=== PATIENT | female | born 1960 | race Caucasian/White ===

== ENCOUNTER 2019-05-24 15:24 | Inpatient (IN) | payer BC ==
[~2019-05-24] VITALS: Ht 157.5 cm; Wt 59.0 kg
[2019-05-24] MEDS ORDERED: NEURONTIN 300300 MG PO (15:29)
[2019-05-24] MEDS ORDERED: KLONOPIN0.5 MG PO (15:30)
[2019-05-24] MEDS ORDERED: ESTRACE 0.5 MG0.5 MG PO (15:30)
[2019-05-24] MEDS ORDERED: ERENUMAB (15:31)
[2019-05-24 16:01] LABS: BASOPHILS 0.4 % (0-2); EOSINOPHILS 0.7 % (0-7); HEMATOCRIT 38.3 % (36.0-48.0); HEMOGLOBIN 13.5 g/dL (12-16); IMMATURE GRANULOCYTES 0.2 % (0-5); LYMPHOCYTES 28.8 % (15-50); MCH 30.7 pg (26.0-34.0); MCHC 35.2 g/dL (31.0-37.0); MEAN PLATELET VOLUME 9.6 fL (7.4-10.4); MONOCYTES 6.5 % (2-11); NEUTROPHILS 63.4 % (40-80); PLATELET COUNT 288 10x3/uL (130-400); RDW 12.5 % (11.5-14.5); WBC 5.6 10x3/uL (4.8-10.8)
[2019-05-24 16:09] LABS: ALBUMIN 3.8 g/dL (3.4-5.0); ALKALINE PHOSPHATASE 79 U/L (46-116); ALT (SGPT) 21 U/L (10-68); BILIRUBIN - TOTAL 0.32 mg/dL (0.2-1.3); CALC OSMOLALITY 278 mosm/kg (275-300); CALCIUM 9.5 mg/dL (8.5-10.1); CARBON DIOXIDE 26.4 mmol/L (21.0-32.0); CHLORIDE - SERUM 103 mmol/L (98-107); CREATININE - SERUM 0.8 mg/dL (0.6-1.3); GLUCOSE 114 mg/dL (74-106); POTASSIUM - SERUM 3.7 mmol/L (3.5-5.1); PROTEIN - SERUM 7.1 g/dL (6.4-8.2); SODIUM 137 mmol/L (136-145); UREA NITROGEN 24 mg/dL (7-18); eGFR NON AFRICAN AMERICAN 78 mL/min (90-120)
[2019-05-24 16:11] LABS: AMYLASE - SERUM 55 U/L (25-115); LIPASE 160 U/L (73-393); TROPONIN-I < 0.017 ng/mL (0.000-0.060)
[2019-05-24 17:36] LABS: APPEARANCE CLEAR (CLEAR); BILIRUBIN NEGATIVE (NEGATIVE); COLOR YELLOW (YELLOW); GLUCOSE NEGATIVE (NEGATIVE); KETONE NEGATIVE (NEGATIVE); NITRITE NEGATIVE (NEGATIVE); PROTEIN NEGATIVE (NEGATIVE); SPECIFIC GRAVITY 1.015 (1.005-1.020); UROBILINOGEN NORMAL (NORMAL)
--- NOTE | 2019-05-24 20:24 | NUR ---
REC'D PATIENT FROM THE ER WITH GUEST AT BEDSIDE. PATIENT REQUESTED PAIN MEDS FOR 10/10 PAIN. PATIENT DENIES OTHER NEEDS AT THIS TIME. BED IN LOWEST POSITION AND CALL LIGHT WITHIN REACH. ENCOURAGED THE PATIENT TO CALL IF SHE HAS NEEDS. WILL CONTINUE TO MONITOR.
[2019-05-25] VITALS (8 sets, daily range): BP systolic 90–164; BP diastolic 60–90; Ht 157.5 cm; Wt 59.0 kg
[2019-05-25] MEDS ORDERED: LEXAPRO20 MG PO (00:45)
[2019-05-25] MEDS ORDERED: PHENERGAN25 M1 PO (00:45)
[2019-05-25] MEDS ORDERED: FLAGYL500 MG PO (00:45)
[2019-05-25] MEDS ORDERED: ESTRACE 0.0142.5 GM VG (00:46)
[2019-05-25] MEDS ORDERED: LINZESS290 MCG PO (00:46)
[2019-05-25] MEDS ORDERED: BUTALB-APAP-CA1 EACH PO (00:47)
[2019-05-25] MEDS ORDERED: FLORAJEN3 CAPS460 MG PO (00:48)
[2019-05-25] MEDS ORDERED: ZANAFLEX4 MG PO (00:48)
[2019-05-25] MEDS ORDERED: [UNRECOGNIZED DRUG - OTHER] (00:49)
[2019-05-25 07:08] LABS: BASOPHILS 0 % (0-2); EOSINOPHILS 0.7 % (0-7); HEMATOCRIT 34.3 % (36.0-48.0); IMMATURE GRANULOCYTES 0.2 % (0-5); LYMPHOCYTES 24.7 % (15-50); MCH 30.2 pg (26.0-34.0); MCV 86.4 fL (80.0-100.0); MEAN PLATELET VOLUME 9.5 fL (7.4-10.4); MONOCYTES 5.9 % (2-11); NEUTROPHILS 68.5 % (40-80); RBC 3.97 10x6/uL (4.00-5.40); RDW 12.5 % (11.5-14.5); WBC 5.8 10x3/uL (4.8-10.8)
[2019-05-25 07:10] LABS: PLATELET COUNT 230 10x3/uL (130-400)
--- NOTE | 2019-05-25 07:15 | NUR ---
PT UP TO BATHROOM WITH ASSIST FROM UPON ENTERING THE ROOM. PT IS ALERT AND ORIENTED X3, UP ADLIB. PT HAS IV TO RIGHT WRITST WITH NORMAL SALINE @ 125. STOOL CULTURE WAS REORDERED THIS AM. PT DENIES ANY NEEDS AT THIS TIME. WILL CTM.
[2019-05-25 07:23] LABS: CALC OSMOLALITY 279 mosm/kg (275-300); CALCIUM 8.5 mg/dL (8.5-10.1); CARBON DIOXIDE 27.1 mmol/L (21.0-32.0); CHLORIDE - SERUM 107 mmol/L (98-107); CREATININE - SERUM 0.7 mg/dL (0.6-1.3); GLUCOSE 89 mg/dL (74-106); PHOSPHOROUS 3.4 mg/dL (2.5-4.9); POTASSIUM - SERUM 3.6 mmol/L (3.5-5.1); SODIUM 141 mmol/L (136-145); eGFR NON AFRICAN AMERICAN > 90 mL/min (90-120)
[2019-05-25 07:24] LABS: UREA NITROGEN 13 mg/dL (7-18)
--- NOTE | 2019-05-25 10:15 | NUR ---
PT RESTING COMFORTABLY IN BED. NO S/S OF DISTRESS NOTED. DENIES ANY NEEDS. WILL CTM.
--- NOTE | 2019-05-25 11:36 | MORECARE ---
CASE MANAGEMENT DISCHARGE SUMMARY PATIENT: HEIDI CANALES UNIT: [id number] ADM DATE: 05/24/19 AGE: 58 : 64 SEX: F ROOM/BED: D.1209 AUTHOR: KEAGAN ROE PHYSICIAN: REFERRING PHYSICIAN: KERRY AMBROSIO MD DATE OF SERVICE: 05/25/19 Discharge Plan Patient Name: HEIDI CANALES [facility] [facility] 1960 Planned Disposition: Home Anticipated Discharge Date: Discharge Date: Expected LOS: Initial Reviewer: [email or web address] Initial Review Date: 05/24/2019 Generated: 05/25/19 12:36 pm DCPIA - Discharge Planning Initial Assessment Updated by [email or web address]: Ama Nair on 05/25/19 11:35 am * Is the patient Alert and Oriented? Yes * How many steps to enter\exit or inside your home? One * PCP Dr. Jean Claude Sharma * [facility] * Preadmission Environment Home with Family * ADLs Independent * Equipment None * List name and contact numbers for known caregivers / representatives who currently or will assist patient after discharge: Danis Canales - spouse - [phone] * Verbal permission to speak to the caregivers and representatives has been obtained from the patient. Yes * Community resources currently utilized None * Additional services required to return to the preadmission environment? No * Can the patient safely return to the preadmission environment? Yes * Has this patient been hospitalized within the prior 30 days at any hospital? No Patient Name: HEIDI CANALES Page 43579 at 1136 All edits/amendments must be made on the electronic document DICTATION DATE: 05/25/19 1136 DENTAL TECHNOLOGY ADVISOR: ROB 05/25/19 1136 RPT#: [id number] DC DATE: STATUS: ADM IN [facility] [address] [place] [address] END OF REPORT
--- NOTE | 2019-05-25 11:44 | MORECARE ---
CASE MANAGEMENT DISCHARGE SUMMARY PATIENT: HEIDI CANALES UNIT: [id number] ADM DATE: 05/24/19 AGE: 58 : 64 SEX: F ROOM/BED: D.1209 AUTHOR: BHUPINDERDOC PHYSICIAN: REFERRING PHYSICIAN: KERRY AMBROSIO MD DATE OF SERVICE: 05/25/19 Discharge Plan Patient Name: HEIDI CANALES Facility: [facility]:[place] : 1960 Planned Disposition: Home Anticipated Discharge Date: Discharge Date: Expected LOS: Initial Reviewer: [email or web address] Initial Review Date: 05/24/2019 Generated: 05/25/19 12:44 pm DCP- Discharge Planning Updated by [email or web address]: Ama Nair on 05/25/19 10:[address] DC PLAN: Return home with spouse independently. ANTICIPATED DC NEEDS: Denied dc needs. CM met with patient and her to complete initial dc planning assessment. CM educated patient on the CM role and verbal consent given by patient to complete assessment. CM verified patient's address, phone number, and emergency contact phone numbers. Patient lives at home with her and reports she is independent in her care at home. She works fulltime in admission at the hospital. At discharge patient plans to return home with her and feels this is a safe discharge. CM discussed availability of home health, rehab services, and medical equipment. Patient denied known discharge needs at this time. The patient is independent in the room and does not feel she needs to be seen by Physical Therapy. Patient reports her car is in the parking lot and she can drive herself if she is able at dc or her will transport her home at time of discharge. CM will continue to follow and will assist as needed with dc plans/needs. Ama Elizalde RN, [facility] DCPIA - Discharge Planning Initial Assessment Updated by [email or web address]: Ama Nair on 05/25/19 11:35 am * Is the patient Alert and Oriented? Yes * How many steps to enter\exit or inside your home? One * PCP Dr. Jean Claude Sharma * [facility] * Preadmission Environment Home with Family * ADLs Independent * Equipment None * List name and contact numbers for known caregivers / representatives who currently or will assist patient after discharge: Danis Canales - [facility] - [phone] * Verbal permission to speak to the caregivers and representatives has been obtained from the patient. Yes * Community resources currently utilized None * Additional services required to return to the preadmission environment? No * Can the patient safely return to the preadmission environment? Yes * Has this patient been hospitalized within the prior 30 days at any hospital? No Last DP export: 05/25/19 10:36 am Patient Name: HEIDI CANALES Page [phone] at 1144 All edits/amendments must be made on the electronic document DICTATION DATE: 05/25/19 1144 JOURNEYMAN CARPENTER: ROB 05/25/19 1144 RPT#: [id number] DC DATE: STATUS: ADM IN [facility] [address] [place] [address] END OF REPORT
--- NOTE | 2019-05-25 15:20 | NUR ---
HUNG IV ANTIBIOTICS, NO COMPLAINT OF IV PAIN. FAMILY AT BEDSIDE. RESTING COMFORTABLY. DENIES ANY NEEDS. WILL CTM.
--- NOTE | 2019-05-25 15:41 | MORECARE ---
CASE MANAGEMENT DISCHARGE SUMMARY PATIENT: HEIDI CANALES UNIT: [id number] ADM DATE: 05/24/19 AGE: 58 : 64 SEX: F ROOM/BED: D.1209 AUTHOR: BHUPINDERDOC PHYSICIAN: REFERRING PHYSICIAN: KERRY AMBROSIO MD DATE OF SERVICE: 05/25/19 Discharge Plan Patient Name: HEIDI ACNALES Facility: [facility]:[place] : 1960 Planned Disposition: Home Anticipated Discharge Date: Discharge Date: Expected LOS: Initial Reviewer: [email or web address] Initial Review Date: 05/24/2019 Generated: 05/25/19 4:41 pm DCP- Discharge Planning Updated by [email or web address]: Ama Nair on 05/25/19 10:[address] DC PLAN: Return home with spouse independently. ANTICIPATED DC NEEDS: Denied dc needs. CM met with patient and her to complete initial dc planning assessment. CM educated patient on the CM role and verbal consent given by patient to complete assessment. CM verified patient's address, phone number, and emergency contact phone numbers. Patient lives at home with her and reports she is independent in her care at home. She works fulltime in admission at the hospital. At discharge patient plans to return home with her and feels this is a safe discharge. CM discussed availability of home health, rehab services, and medical equipment. Patient denied known discharge needs at this time. The patient is independent in the room and does not feel she needs to be seen by Physical Therapy. Patient reports her car is in the parking lot and she can drive herself if she is able at dc or her will transport her home at time of discharge. CM will continue to follow and will assist as needed with dc plans/needs. Ama Elizalde RN, [facility] DCPIA - Discharge Planning Initial Assessment Updated by [email or web address]: Ama Nair on 05/25/19 11:35 am * Is the patient Alert and Oriented? Yes * How many steps to enter\exit or inside your home? One * PCP Dr. Jean Claude Sharma * [facility] * Preadmission Environment Home with Family * ADLs Independent * Equipment None * List name and contact numbers for known caregivers / representatives who currently or will assist patient after discharge: Danis Canales - [facility] - [phone] * Verbal permission to speak to the caregivers and representatives has been obtained from the patient. Yes * Community resources currently utilized None * Additional services required to return to the preadmission environment? No * Can the patient safely return to the preadmission environment? Yes * Has this patient been hospitalized within the prior 30 days at any hospital? No External Providers External Provider: OTHER-OTHER Next Contact Date: Service Request Date: Service Type: Resolution: Reviewer: Comments: Last DP export: 05/25/19 10:44 am Patient Name: HEIDI CANALES Page [phone] at 1541 All edits/amendments must be made on the electronic document DICTATION DATE: 05/25/191540 BALL HOLDER: ROB 05/25/191540 RPT#: [id number] DC DATE: STATUS: ADM IN [facility] [address] [place] [address] END OF REPORT
--- NOTE | 2019-05-25 16:29 | NUR ---
I have reviewed this patient and I concur with the Shift Assessment completed by the Licensed Practical Nurse today this shift.
--- NOTE | 2019-05-25 16:40 | NUR ---
PT REQUESTED PHENERGAN AND ASKED IF SHE COULD TAKE HER HOME MEDICATION, TIZANIDINE FOR MIGRAINES. CONTACTED NEOLLE, SHE STATED SHE WOULD PUT IN AN ORDER AND SAID IT IS OKAY TO TAKE TIZANIDINE FROM HOME, JUST TO ADD IT TO MED REC. DENIES ANY NEEDS AT THIS TIME. WILL CTM.
--- NOTE | 2019-05-25 19:30 | NUR ---
PT CARE ASSUMED. PT RESTING IN BED. RR EVEN AND UNLABORED. NO S/S OF DISTRESS NOTED. DENIES NEEDS AT THIS TIME. NO VOICED C/O OR CONCERS. AT BEDSIDE. CALL LIGHT IN REACH. WILL CPOC.
[2019-05-26 04:00] VITALS: BP 109/70
[2019-05-26 05:37] LABS: BASOPHILS 0.2 % (0-2); EOSINOPHILS 2.9 % (0-7); HEMATOCRIT 31.1 % (36.0-48.0); HEMOGLOBIN 10.8 g/dL (12-16); LYMPHOCYTES 41.5 % (15-50); MCHC 34.7 g/dL (31.0-37.0); MCV 86.4 fL (80.0-100.0); MEAN PLATELET VOLUME 9.6 fL (7.4-10.4); MONOCYTES 8.1 % (2-11); NEUTROPHILS 47.3 % (40-80); PLATELET COUNT 225 10x3/uL (130-400); RDW 12.6 % (11.5-14.5); WBC 4.4 10x3/uL (4.8-10.8)
[2019-05-26 06:13] LABS: CALC OSMOLALITY 287 mosm/kg (275-300); CALCIUM 8.2 mg/dL (8.5-10.1); CARBON DIOXIDE 27.3 mmol/L (21.0-32.0); CHLORIDE - SERUM 111 mmol/L (98-107); CREATININE - SERUM 0.7 mg/dL (0.6-1.3); GLUCOSE 86 mg/dL (74-106); MAGNESIUM - SERUM 1.9 mg/dL (1.8-2.4); PHOSPHOROUS 3.5 mg/dL (2.5-4.9); POTASSIUM - SERUM 3.5 mmol/L (3.5-5.1); SODIUM 146 mmol/L (136-145); eGFR NON AFRICAN AMERICAN > 90 mL/min (90-120)
[2019-05-26 06:15] LABS: UREA NITROGEN 6 mg/dL (7-18)
--- NOTE | 2019-05-26 07:35 | NUR ---
AM ROUNDS- PT SITTING UP RIGHT IN BED WITH AT BEDSIDE UPON ENTERING. VITAL SIGNS ASSESSED AT THIS TIME, ALL STABLE SLIGHT ELEVATION IN BP 145/82. PT STATES THAT "IT'S BECAUSE MY HEAD HURTS SO BAD." PT SELF MEDICATED WITH EXCEDRIN AND TIZANIDINE FOR MIGRAINE. RIGHT WRIST IV WITH NORMAL SALINE @ 125. DENIES ANY NEEDS AT THIS TIME. WILL CTM.
[2019-05-26 08:12] VITALS: BP 145/82
--- NOTE | 2019-05-26 11:43 | NUR ---
ADMINISTERED MEDICATION AT THIS ITME. NO TROUBLE SWALLOWING. PT RESTING COMFORTABLY IN BED WITH AT BEDSIDE. WOULD LIKE TO TALK TO DOCTOR ABOUT ADVANCING DIET. DENIES ANY NEEDS AT THIS TIME. WILL CTM.
--- NOTE | 2019-05-26 13:25 | NUR ---
PT RESTING COMFORTABLY IN BED, AT BEDSIDE. GOT ADVANCED DIET LIKE REQUESTED PER ISELA DRAKE. DENIES ANY NEEDS AT THIS TIME. WILL CTM.
--- NOTE | 2019-05-26 15:16 | NUR ---
ADMINISTERED PRN IMODIUM FOR DIARRHEA REPORTED BY THE PT. CYNTHIA IV ANTIBIOTICS. DENIES OTHER NEEDS. WILL CTM.
--- NOTE | 2019-05-26 19:30 | NUR ---
PT SITTING UP IN BED WITHOUT DISTRESS, AOX4. DENIES NAUSEA AT THIS TIME. REQUESTING IMODIUM FOR DIARRHEA, GAVE ORDERED. STATES HER REGULAR SOFT DIET DID NOT SIT WELL ON HER STOMACH. IV RIGHT WRIST INFUSING NS @ 125. DENIES OTHER NEEDS OR PAIN. CL IN REACH, WILL CTM
[2019-05-26 20:00] VITALS: BP 143/79
[2019-05-27] VITALS: BP 129/78
[2019-05-27 04:45] VITALS: BP 170/100
[2019-05-27 05:49] LABS: BASOPHILS 0.2 % (0-2); EOSINOPHILS 1.7 % (0-7); HEMATOCRIT 31.2 % (36.0-48.0); IMMATURE GRANULOCYTES 0.2 % (0-5); LYMPHOCYTES 36.3 % (15-50); MCH 30.4 pg (26.0-34.0); MCHC 35.3 g/dL (31.0-37.0); MCV 86.2 fL (80.0-100.0); MEAN PLATELET VOLUME 9.7 fL (7.4-10.4); MONOCYTES 5.6 % (2-11); PLATELET COUNT 216 10x3/uL (130-400); RBC 3.62 10x6/uL (4.00-5.40); RDW 12.5 % (11.5-14.5); WBC 5.4 10x3/uL (4.8-10.8)
[2019-05-27 06:02] LABS: CALC OSMOLALITY 288 mosm/kg (275-300); CALCIUM 8.3 mg/dL (8.5-10.1); CARBON DIOXIDE 27.6 mmol/L (21.0-32.0); CHLORIDE - SERUM 111 mmol/L (98-107); CREATININE - SERUM 0.7 mg/dL (0.6-1.3); GLUCOSE 89 mg/dL (74-106); MAGNESIUM - SERUM 1.6 mg/dL (1.8-2.4); POTASSIUM - SERUM 3.2 mmol/L (3.5-5.1); SODIUM 146 mmol/L (136-145); eGFR NON AFRICAN AMERICAN > 90 mL/min (90-120)
[2019-05-27 06:09] LABS: UREA NITROGEN 9 mg/dL (7-18)
--- NOTE | 2019-05-27 07:10 | NUR ---
REPORT RECEIVED FROM URGENT CARE TECHNICIAN AND PATIENT CARE ASSUMED. PATIENT SITTING UP IN BED AWAKE, ALERT AND ORIENTED X 4. PATIENT STATES THAT LAST PM WHEN HER DIET ADVANCED TO SOFT FOODS SHE EXPERINENCED ABD PAIN AND CRAMPING WITH SOME NAUSEA. PATIENT DENIES ANY PAIN OR NAUSEA NOW. VSS. WILL CONTINUE WITH PLAN OF CARE. SR UP X 2 BED IN LOW POSITION AND CALL LIGHT IN REACH.
--- NOTE | 2019-05-27 15:47 | NUR ---
PATIENT IS STABLE AND VSS. PATIENT DENIES ANY NEEDS OR PAIN. ORDERS RECEIVED FOR DC. VERBAL AND WRITTEN DC INSTRUCTIONS GIVEN TO PATIENT AND PATIENT VERBALIZED UNDERSTANDING AND SIGNED DC INSTRUCTIONS. PATIENT TO FRONT DOOR VIA WC AND HOSPITAL PERSONNEL TO PRIVATE VEHICLE DRIVEN BY A FAMILY MEMBER.
--- NOTE | 2019-05-27 17:02 | MORECARE ---
CASE MANAGEMENT DISCHARGE SUMMARY PATIENT: HEIDI CANALES UNIT: [id number] ADM DATE: 05/26/19 AGE: 58 : 64 SEX: F ROOM/BED: D.1209 AUTHOR: BHUPINDER,DOC PHYSICIAN: REFERRING PHYSICIAN: KERRY AMBROSIO MD DATE OF SERVICE: 05/27/19 Discharge Plan Patient Name: HEIDI CANALES Facility: [facility]:[place] : 1960 Planned Disposition: Home Anticipated Discharge Date: Discharge Date: 05/27/2019 Expected LOS: Initial Reviewer: [email or web address] Initial Review Date: 05/24/2019 Generated: 05/27/19 6:02 pm DCP- Discharge Planning Updated by [email or web address]: Ama Nair on 05/25/19 10:[address] DC PLAN: Return home with spouse independently. ANTICIPATED DC NEEDS: Denied dc needs. CM met with patient and her to complete initial dc planning assessment. CM educated patient on the CM role and verbal consent given by patient to complete assessment. CM verified patient's address, phone number, and emergency contact phone numbers. Patient lives at home with her and reports she is independent in her care at home. She works fulltime in admission at the hospital. At discharge patient plans to return home with her and feels this is a safe discharge. CM discussed availability of home health, rehab services, and medical equipment. Patient denied known discharge needs at this time. The patient is independent in the room and does not feel she needs to be seen by Physical Therapy. Patient reports her car is in the parking lot and she can drive herself if she is able at dc or her will transport her home at time of discharge. CM will continue to follow and will assist as needed with dc plans/needs. Ama Elizalde RN, [facility] DCPIA - Discharge Planning Initial Assessment Updated by [email or web address]: Ama Nair on 05/25/19 11:35 am * Is the patient Alert and Oriented? Yes * How many steps to enter\exit or inside your home? One * PCP Dr. Jean Claude Sharma * [facility] * Preadmission Environment Home with Family * ADLs Independent * Equipment None * List name and contact numbers for known caregivers / representatives who currently or will assist patient after discharge: Danis Canales - spouse - [phone] * Verbal permission to speak to the caregivers and representatives has been obtained from the patient. Yes * Community resources currently utilized None * Additional services required to return to the preadmission environment? No * Can the patient safely return to the preadmission environment? Yes * Has this patient been hospitalized within the prior 30 days at any hospital? No Last DP export: 05/25/19 2:41 pm Patient Name: HEIDI CANALES Page 56839 at 1702 All edits/amendments must be made on the electronic document DICTATION DATE: 05/27/191700 DIE CUTTER DIAMOND: ROB 05/27/191700 RPT#: [id number] DC DATE:05/27/19 STATUS: DIS IN [facility] [address] [place] [address] END OF REPORT
== END 2019-05-27 15:50 | disposition home or self-care (01) | DRG 392 ==
LOC: D.ER 15:24 → OBSVTIME 19:13 → D.M3 19:13
PROVIDERS: Family Medicine; ADMIT Family Medicine; ATTEND Family Medicine
DX: K52.9 Noninfective gastroenteritis and colitis, unspecified (principal); K21.9 Gastro-esophageal reflux disease without esophagitis

== ENCOUNTER 2019-06-07 11:40 | Emergency (ER) | payer BC ==
[~2019-06-07] VITALS: Ht 157.5 cm; Wt 59.1 kg
[~2019-06-07 11:40] MED LIST: BUTALB-APAP-CA1 EACH PO; ERENUMAB; ESTRACE 0.0142.5 GM VG; ESTRACE 0.5 MG0.5 MG PO; FLAGYL500 MG PO; FLORAJEN3 CAPS460 MG PO; KLONOPIN0.5 MG PO; LEXAPRO20 MG PO; LINZESS290 MCG PO; NEURONTIN 300300 MG PO; PHENERGAN25 M1 PO; ZANAFLEX4 MG PO; [UNRECOGNIZED DRUG - OTHER]
[2019-06-07 12:10] VITALS: Ht 157.5 cm; Wt 59.1 kg
[2019-06-07] MEDS ORDERED: LEVOFLOXACIN500 MG PO (12:12)
[2019-06-07 12:44] LABS: BASOPHILS 0.1 % (0-2); EOSINOPHILS 0.1 % (0-7); HEMATOCRIT 36.5 % (36.0-48.0); HEMOGLOBIN 13.3 g/dL (12-16); IMMATURE GRANULOCYTES 0.2 % (0-5); LYMPHOCYTES 23.4 % (15-50); MCH 30.9 pg (26.0-34.0); MCHC 36.4 g/dL (31.0-37.0); MCV 84.9 fL (80.0-100.0); MEAN PLATELET VOLUME 9.1 fL (7.4-10.4); MONOCYTES 5.2 % (2-11); RDW 12.4 % (11.5-14.5)
[2019-06-07 12:47] LABS: PLATELET COUNT 347 10x3/uL (130-400)
[2019-06-07 12:56] LABS: ALKALINE PHOSPHATASE 90 U/L (46-116); ALT (SGPT) 21 U/L (10-68); BILIRUBIN - TOTAL 0.58 mg/dL (0.2-1.3); CALC OSMOLALITY 286 mosm/kg (275-300); CALCIUM 9.6 mg/dL (8.5-10.1); CARBON DIOXIDE 24.4 mmol/L (21.0-32.0); CHLORIDE - SERUM 105 mmol/L (98-107); CREATININE - SERUM 0.8 mg/dL (0.6-1.3); GLUCOSE 103 mg/dL (74-106); POTASSIUM - SERUM 3.2 mmol/L (3.5-5.1); PROTEIN - SERUM 7.7 g/dL (6.4-8.2); SODIUM 143 mmol/L (136-145); UREA NITROGEN 18 mg/dL (7-18); eGFR NON AFRICAN AMERICAN 78 mL/min (90-120)
[2019-06-07 13:01] LABS: AMYLASE - SERUM 54 U/L (25-115); LIPASE 107 U/L (73-393); TROPONIN-I < 0.017 ng/mL (0.000-0.060)
[2019-06-07 15:16] LABS: APPEARANCE CLEAR (CLEAR); BILIRUBIN NEGATIVE (NEGATIVE); COLOR YELLOW (YELLOW); GLUCOSE NEGATIVE (NEGATIVE); KETONE NEGATIVE (NEGATIVE); NITRITE NEGATIVE (NEGATIVE); PROTEIN NEGATIVE (NEGATIVE); SPECIFIC GRAVITY 1.005 (1.005-1.020); UROBILINOGEN NORMAL (NORMAL)
[2019-06-07] MEDS ORDERED: ZOFRAN ODT4 MG/UDTAB PO (16:37)
[2019-06-07] MEDS ORDERED: FLORASTOR250 MG PO (16:39)
[2019-06-07 16:44] VITALS: BP 130/86
== END 2019-06-07 17:36 | disposition home or self-care (01) ==
LOC: D.ER 11:40
PROVIDERS: Family Medicine
DX: R11.2 Nausea with vomiting, unspecified (principal); R10.9 Unspecified abdominal pain; R19.7 Diarrhea, unspecified

== ENCOUNTER → 2019-08-16 10:34 | Outpatient (CLI) | payer BC ==
[2019-06-07 12:10] VITALS: BMI 23.8
[~2019-08-16 10:34] MED LIST changes: +FLORASTOR250 MG PO; +LEVOFLOXACIN500 MG PO; +ZOFRAN ODT4 MG/UDTAB PO
== END | disposition home or self-care (01) ==
LOC: D.MRI 10:34
PROVIDERS: ATTEND Internal Medicine Gastroenterology
DX: R11.2 Nausea with vomiting, unspecified (principal)

== ENCOUNTER → 2019-08-17 11:21 | Outpatient (CLI) | payer BC ==
[2019-06-07 12:10] VITALS: BMI 23.8
== END | disposition home or self-care (01) ==
LOC: D.NM 11:21
PROVIDERS: ATTEND Internal Medicine Gastroenterology
DX: R11.2 Nausea with vomiting, unspecified (principal)

== ENCOUNTER → 2019-08-23 08:49 | Outpatient (CLI) | payer BC ==
[2019-06-07 12:10] VITALS: BMI 23.8
== END | disposition home or self-care (01) ==
LOC: D.MRI 08:49
PROVIDERS: ATTEND Internal Medicine Gastroenterology
DX: K76.9 Liver disease, unspecified (principal)

== ENCOUNTER → 2019-12-09 08:49 | Outpatient (CLI) | payer BC ==
[2019-06-07 12:10] VITALS: BMI 23.8
[2019-12-09 09:30] LABS: ALBUMIN 4.1 g/dL (3.4-5.0); BILIRUBIN - DIRECT 0.08 mg/dL (0.00-0.30); BILIRUBIN - INDIRECT 0.42 mg/dL (0.00-1.00); BILIRUBIN - TOTAL 0.5 mg/dL (0.2-1.3); PROTEIN - SERUM 7.5 g/dL (6.4-8.2)
== END | disposition home or self-care (01) ==
LOC: D.LAB 08:45
PROVIDERS: ATTEND Internal Medicine Gastroenterology
DX: K76.0 Fatty (change of) liver, not elsewhere classified (principal)

== ENCOUNTER → 2019-12-10 07:13 | Outpatient (CLI) | payer BC ==
[2019-06-07 12:10] VITALS: BMI 23.8
== END | disposition home or self-care (01) ==
LOC: D.US 11-23 08:30
PROVIDERS: ATTEND Internal Medicine Gastroenterology
DX: K76.0 Fatty (change of) liver, not elsewhere classified (principal)

== ENCOUNTER 2020-01-13 14:04 | Inpatient (IN) | payer BC ==
[~2020-01-13] VITALS: Ht 157.5 cm; Wt 66.4 kg
[2020-01-13] VITALS (9 sets, daily range): BP systolic 145–196; BP diastolic 95–116; Ht 157.5 cm; Wt 66.4 kg
--- NOTE | ~2020-01-13 | HEMODYNAMI ---
PATIENT:HEIDI POZO MEDICAL RECORD: [id number] : 64 LOCATION:[facility] D211 ADMISSION DATE: 01/13/20 Generatedon:01/14/202010:13 Patient name: HEIDI POZO Patient #: [id number] SSN: [id number] : 1960 Date of study: 01/14/2020 Page: Of Hemodynamic Procedure Report Patient Data Patient Demographics Procedure consent was obtained First Name: HEIDI Gender: Female Last Name: NOHELIA : 1960 Patient #: [id number] Age: 59 year(s) Race: SSN: [id number] Additional ID: [id number] Contact details [address]: [address] [place] [address] State: [place] City: [place] Zip code: [address] Past Medical History Allergies Allergen Reaction Date Comments Reported Other allergy 01/14/2020 MORPHINE Admission Admission Data Admission Date: 01/13/2020 Admission Time: 17:29 Room #: [facility] Lab Results Lab Result Date: 01/14/2020 Lab Result Time: 0:00 Biochemistry Name Units Result Min Max BUN mg/dl 17 --(---*)-- 7 18 Creatinine mg/dl 0.7 --(*---)-- 0.6 1.3 eGFR ml/min 90 --(*---)-- 90 120 NONAFRICAN CBC Name Units Result Min Max Hematocrit % 36 *-(----)-- 42 54 Hemoglobin g/dl 12 *-(----)-- 13.5 17.5 Procedure Procedure Types Cath Procedure Diagnostic Procedure C [facility] w/Coronaries Sedation Charges Moderate Sedation up to 15 minutes Procedure Description Procedure Date Procedure Date: 01/14/2020 Procedure Start Time: 10:01 Procedure End Time: 10:11 Procedure Staff Name Function Meet James MD Performing Physician Smiley Romero RT Scrub Monika Watkins RT Kiln Furniture Caster Diane Man RN Nurse Nery Nannemann RT Monitor Procedure Data Cath Procedure Fluoroscopy Diagnostic fluoroscopy Total fluoroscopy Time: 1 time: 1 min min Diagnostic fluoroscopy Total fluoroscopy dose: 326 dose: 326 mGy mGy Contrast Material Contrast Material Type Amount (ml) Isovue 300 56 Entry Location Entry Primary Successful Side Size Upsize Upsize Entry Closure Succes sful Closure Location (Fr) 1 (Fr) 2 (Fr) Remarks Device Remarks Femoral Right 5 Fr Exoseal artery Estimated blood loss: 5 ml Diagnostic catheters Device Type Used For End Catheter Placement MULTIPACK JL 4.0 5Fr Left Coronary catheter Angiography MULTIPACK 3DRC 5Fr Right Coronary catheter Angiography MULTIPACK Pigtail 5 Fr LV Angiography catheter Procedure Complications No complications Procedure Medications Medication Administration Route Dosage 0.9% NaCl I.V. 100 ml/hr Oxygen etCO2 Nasal cannula 2 l/min Lidocaine 2% added to field 20 Heparin Flush Bag added to field 2 bags (1000units/500ml NS) Versed I.V. 2 mg Fentanyl I.V. 50 mcg Fentanyl I.V. 50 mcg Hemodynamics Rest HGB: 12 (g/dl) Heart Rate: 82 (bpm) Pressure Samples Time Site Value (mmHg) Purpose Heart Use Rate(bpm) 10:06 LV 142/10,17 Snapshot 94 10:07 AO 139/98(119) Pullback 90 Gradients Valve Time Site Site 2 Mean SEP/DFP Peak To Heart Use 1 (mmHg) (sec/min) Peak Rate (mmHg) (bpm) Aortic 10:07 LV AO 51 14 90 139/98(119) Calculations Valve P-P Mean Valve Index Valve Source Name Gradient Area Flow (cm2) Aortic 51 51 Snapshots Pre Cath Intra NCS Post Cath Vital Signs Time Heart Resp SPO2 etCO2 NIBP (mmHg) Rhythm Pain Sedation Rate (ipm) (%) (mmHg) Status Level (bpm) 9:49:36 81 10 96 13 143/98(128) NSR 0 (11) 10(A) , No pain 9:53:46 81 9 97 14.1 134/87(107) NSR 0 (11) 10(A) , No pain 9:57:56 81 9 96 18.6 137/94(110) NSR 0 (11) 10(A) , No pain 10:02:06 85 10 97 39.5 139/91(114) NSR 0 (11) 10(A) , No pain 10:06:16 95 11 98 41.7 143/94(115) NSR 0 (11) 10(A) , No pain 10:10:27 90 13 90 40.9 137/96(111) NSR 0 (11) 10(A) , No pain Medications Time Medication Route Dose Verified Delivered Reason Notes Eff ectiveness by by 9:48:22 0.9% NaCl I.V. 100 Meet Diane used for ml/hr [place] [facility] procedure MD BROCK 9:48:29 Oxygen etCO2 2 Meet Diane used for Nasal l/min [facility] procedure cannula MD BROCK 9:48:34 Lidocaine 2% added 20ml Meet Dsouza for local to vial [facility] anesthetic field MD BARON 9:48:38 Heparin Flush added 2 Meet Meet used for Bag to bags [facility] procedure (1000units/500ml field MD BARON NS) 9:59:04 Versed I.V. 2 mg Meet Diane for [place] [facility] sedation MD BROCK 9:59:09 Fentanyl I.V. 50 Meet Diane for mcg [place] [facility] sedation MD BROCK 10:05:30 Fentanyl I.V. 50 Meet Diane for mcg [place] [facility] sedation MD BROCKstate manager Log Time Note 9:24:50 Informed consent obtained and on chart 9:25:05 Procedure Status Urgent Heart Cath (IP). 9:25:09 Time tracking: Regular hours (M-F 7:00 - 5:00) 9:25:17 ACC Patient presents with Stable Angina CCS Anginal Class 3--Marked limitation of physical activity, angina occurs with ordinary activity.. 9:26:33 Lab Result : BUN 17 mg/dl 9::33 Lab Result : Hemoglobin 12 g/dl 9::33 Lab Result : Hematocrit 36 % 9::33 Lab Result : Creatinine 0.7 mg/dl 9::33 Lab Result : eGFR NONAFRICAN 90 ml/min 9:30:11 Lab results completed and on chart. 9:30:16 Risk of Mortality: 0.5 9:30:20 Risk of blood transfusion: 1.9 9:30:24 Risk of ELBA: 2.9 9:30:33 Stress Test: no; N/A ? 9:31:01 Patient allergic to Other allergyMORPHINE 9:31:11 Patient diabetic? No. 9:31:18 Patient not . Patient is over age 55. 9:33:50 Monika Watkins RT(R) sent for patient. Start room use. 9:34:00 Plan of Care:Hemodynamics will remain stable., Cardiac rhythm will remain stable., Comfort level will be maintained., Respiratory function will remain adequate., Patient/ family verbilizes understanding of procedure., Procedure tolerated without complication., Recovers from procedure without complications.. 9:41:13 Patient received from Med II to CCL 1 Alert and oriented. Tansferred to table in Supine position. 9:41:16 Warm blankets applied, and evelina hugger turned on for patient comfort. 9:41:16 Correct patient and procedure confirmed by team. 9:41:17 ECG and BP/O2 sat monitors applied to patient. 9:43:26 H&P Date Dictated: 01/14/2020 ER History on chart.. 9:48:22 0.9% NaCl 100 ml/hr I.V. was administered by Diane Man RN; used for procedure; Verbal order read back and verified. 9:48:29 Oxygen 2 l/min etCO2 Nasal cannula was administered by Diane Man RN ; used for procedure; Verbal order read back and verified. 9:48:32 Vital chart was started 9:48:34 Lidocaine 2% 20ml vial added to field was administered by Meet James MD; for local anesthetic; Verbal order read back and verified. 9:48:38 Heparin Flush Bag (1000units/500ml NS) 2 bags added to field was administered by Meet James MD; used for procedure; Verbal order read back and verified. 9:48:38 Rhythm: sinus rhythm 9:48:42 Full Disclosure recording started 9:48:43 - 9:48:45 Pre-procedure instructions explained to patient. 9:48:46 Pre-op teaching completed and patient verbalized understanding. 9:48:50 Family unavailable. 9:48:53 Patient NPO since Midnight. 9:48:58 Is the patient allergic to Iodine/contrast media? No. 9:49:02 Was the patient premedicated? Yes 9:49:04 Is patient on blood thinner?No 9:49:09 ----Pre-sedation anethsthesia assessment.---- 9:49:14 Previous problem with sedation/anesthesia? No ? 9:49:20 Snore? Yes 9:49:25 Sleep apnea? No 9:49:28 Deviated septum? No 9:49:30 Opens mouth fully? Yes 9:49:33 Sticks out tongue? Yes 9:49:40 Airway obstruction? No ? 9:49:48 Dentures? No ? 9:49:55 Pre procedure: right dorsailis pedis pulse 1+ Palpable, but thready & weak; easily obliterated 9:50:07 IV patent on arrival in left forearm with 0.9% NaCl at KVO. 9:50:18 Right groin area was prepped with chlora-prep and draped in sterile fashion 9:50:23 Alarms reviewed by R. N. 9:50:23 Sharps counted by scrub and verified by R.N. 9:52:48 Baseline sample Acquired. 9:53:54 NERY NOTIFIED PATIENT'S PROCEDURE STARTED. 9:54:03 Physician arrived 9:54:04 --------ALL STOP TIME OUT------ 9:54:05 Final Timeout: patient, procedure, and site verified with staff and physician. All members of the team are in agreement. 9:54:08 Right groin site verified by team. 9:54:13 Fire Safety Assessment: A--An alcohol-based skin anteseptic being used preoperatively., C--Open oxygen or nitrous oxide is being used., D--An ESU, laser, or fiber-optic light is being used. 9:54:20 Physical assessment completed. ASA score P 2 - A patient with mild systemic disease as per Meet James MD. 9:54:26 1) 90+ Normal kidney functon but urine findings or structural abnormalities or genetic trait point to kidney disease. 9:54:30 Maximum allowable contrast dose (3.7 X eGFR X 0.75)250 ml. 9:54:38 Sedation plan: IV Moderate Sedation Medication:Versed, Fentanyl 9:54:44 Use device set Femoral Dx 9:54:46 ACIST Syringe (47943) opened to sterile field. 9:54:47 Bag Decanter (2001S) opened to sterile field. 9:54:47 Medline Cath Pack ([id number]) opened to sterile field. 9:54:49 ACIST Hand Control (74625) opened to sterile field. 9:54:50 ACIST Manifold (29153) opened to sterile field. 9:54:51 DIAGNOSTIC Multipack 5Fr catheter set (OX6569) opened to sterile field. 9:54:52 Tegaderm 4 x 4 (1626W) opened to sterile field. 9:54:53 SHEATH 5FR Paton (OKH682) opened to sterile field. 9:54:54 EMERALD Guide Wire (024-695) opened to sterile field. 9:59:01 Zero performed for pressure channel P1 9:59:04 Versed 2 mg I.V. was administered by Diane Man RN; for sedation; Verbal order read back and verified. 9:59:09 Fentanyl 50 mcg I.V. was administered by Diane Man RN; for sedation ; Verbal order read back and verified. 10:01:37 Procedure started. 10:01:40 Local anesthetic to right femoral artery with Lidocaine 2% by Meet Sol MD.INITIAL ACCESS ONLY 10:02:33 A 5 Fr sheath was inserted into the Right Femoral artery 10:02:54 A MULTIPACK JL 4.0 5Fr catheter was advanced over the wire and used for Left Coronary Angiography. 10:03:45 LCA angiography performed. 10:04:09 Injector settings: Ml/sec: 3, Volume: 6, 10:04:42 Catheter removed. 10:05:30 Fentanyl 50 mcg I.V. was administered by Diane Man RN; for sedation ; Verbal order read back and verified. 10:05:49 A MULTIPACK 3DRC 5Fr catheter was advanced over the wire and used for Right Coronary Angiography. 10:05:53 ACCDominant side:Right 10:05:59 Injector settings: Ml/sec: 3, Volume: 6, 10:06:20 A MULTIPACK Pigtail 5 Fr catheter was advanced over the wire and used for LV Angiography. 10:06:34 Injector settings: Ml/sec: 5, Volume: 15, 10:06:38 LV gram done using LOOMIS 10:07:02 LV hemodynamics recorded. 10:07:12 EF : 55 % 10:07:37 Catheter removed. 10:07:39 EXOSEAL 5Fr (EX500) opened to sterile field. 10:07:53 Contrast amount:Isovue 300 56ml. 10:08:03 Sheath removed intact; hemostasis achieved with Exoseal to the Right Femoral artery. 10:08:06 Procedure ended.(Physican Out) 10:08:16 Maximum allowable dose exceeded? No. 10:08:40 Fluoroscopy time 01.00 minutes. 10:08:49 Fluoroscopy dose: 326 mGy 10:08:49 Flurop Dose total: 326 10:08:58 Dose Area Product 80041 mGy/cm. 10:09:01 Sharps counted by scrub and verified by R.N. 10:09:05 Insertion/operative site no bleeding no hematoma. 10:09:12 Post-op/insertion site Right Femoral artery dressed using a 4 x 4 and Tegaderm. 10:09:18 Post right femoral artery:stable 10:09:25 Post-procedure physical assessment completed. ASA score P 2 - A patient with mild systemic disease as per Meet James MD. 10:09:29 Post procedure rhythm: unchanged. 10:09:33 Estimated blood loss: 5 ml 10:09:35 Post procedure instruction explained to patient.Patient verbalizes understanding. 10:09:36 Patient needs reinforcement of post procedure teaching. 10:10:15 Procedure type changed to Cath procedure, Diagnostic procedure, LHC, C w/Coronaries, Sedation Charges, Moderate Sedation up to 15 minutes 10:10:17 Procedure and supply charges have been captured, reviewed, submitted an d are correct. 10:10:47 Procedure Complication : No complications 10:10:51 Vital chart was stopped 10:10:54 [facility] Findings: mild to moderate CAD (<70%) 10:10:59 Operative report dictated upon procedure completion. 10:10:59 See physician's report for complete and final results. 10:11:01 Report given to [facility] II. 10:11:06 Patient transfered to Med II with Bed. 10:11:09 Procedure ended. 10:11:09 Full Disclosure recording stopped 10:11:13 End room use (Document Last) Device Usage Item Name Manufacture Quantity Catalog Hospital Part Current Minimal L ot# / Number Charge Number Stock Stock Serial# Code ACIST Acist 1 58788 [id number] 656974 217849 20 Syringe Medical (77103) Systems Inc Bag Microtek 1 617917 44298 629107 5 Decanter Medical Inc. () Medline Medline 1 [id number] 679348 65733 955576 5 Cath Pack ([id number]) ACIST Hand Acist 1 50026 048610 400104 350559 5 Control Medical (91816) Systems Inc ACIST Acist 1 34357 751387 843430 111903 5 Manifold Medical (00617) Systems Inc DIAGNOSTIC Cardinal 1 [id number] 368684 25400 168669 30 Multipack Health 5Fr catheter set (UV3876) Tegaderm 4 3M 1 1626W 311214 261708 463025 5 x 4 (1626W) SHEATH 5FR Terumo 1 MGD623 588738 521529 838228 5 Paton (ICJ853) EMERALD Cardinal 1 502-455 416576 310150 150237 5 Guide Wire Health (502-455) MULTIPACK Cardinal 1 658959 5 JL 4.0 5Fr Health catheter MULTIPACK Cardinal 1 178987 5 3DRC 5Fr Health catheter MULTIPACK Cardinal 1 435582 5 Pigtail 5 Health Fr catheter EXOSEAL 5Fr Cardinal 1 EX500 027875 503696 467228 10 (EX500) Health Signature Audit [place] Stage Time Signature Unsigned Intra-Procedure 01/14/2020 Nery 10:12:07 AM Gene RT(R) (CV) Intra-Procedure 01/14/2020 Diane Man 10:12:45 AM RN Intra-Procedure 01/14/2020 Meet Perkins 10:13:11 AM Ebenezer [facility] [address] [id number]
[2020-01-13] MEDS ORDERED: EMGALITY SQ (14:14)
[2020-01-13 14:33] LABS: BASOPHILS 0.1 % (0-2); EOSINOPHILS 0.5 % (0-7); HEMATOCRIT 39.7 % (36.0-48.0); HEMOGLOBIN 13.5 g/dL (12-16); IMMATURE GRANULOCYTES 0.3 % (0-5); LYMPHOCYTES 39.8 % (15-50); MCH 30.3 pg (26.0-34.0); MCV 89.2 fL (80.0-100.0); MEAN PLATELET VOLUME 8.7 fL (7.4-10.4); MONOCYTES 6.1 % (2-11); NEUTROPHILS 53.2 % (40-80); PLATELET COUNT 308 10x3/uL (130-400); RBC 4.45 10x6/uL (4.00-5.40); WBC 7.4 10x3/uL (4.8-10.8)
[2020-01-13 14:37] LABS: APTT 25.3 SECONDS (22.8-39.4); INR 0.91 (0.85-1.17); PROTIME 12.2 SECONDS (11.6-15.0)
[2020-01-13 14:38] LABS: CALC OSMOLALITY 279 mosm/kg (275-300); CALCIUM 8.7 mg/dL (8.5-10.1); CARBON DIOXIDE 24.7 mmol/L (21.0-32.0); CHLORIDE - SERUM 103 mmol/L (98-107); CREATININE - SERUM 0.8 mg/dL (0.6-1.3); GLUCOSE 91 mg/dL (74-106); POTASSIUM - SERUM 3.9 mmol/L (3.5-5.1); SODIUM 139 mmol/L (136-145); UREA NITROGEN 19 mg/dL (7-18); eGFR NON AFRICAN AMERICAN 78 mL/min (90-120)
[2020-01-13 14:57] LABS: ALBUMIN 3.9 g/dL (3.4-5.0); ALKALINE PHOSPHATASE 101 U/L (30-120); ALT (SGPT) 26 U/L (10-68); BILIRUBIN - TOTAL 0.21 mg/dL (0.2-1.3); CKMB 0.3 U/L (0.0-3.6); CREATINE KINASE 42 UL (21-215); MAGNESIUM - SERUM 2.4 mg/dL (1.8-2.4); PROTEIN - SERUM 7.6 g/dL (6.4-8.2)
[2020-01-13 15:00] LABS: TROPONIN-I < 0.017 ng/mL (0.000-0.060)
--- NOTE | 2020-01-13 15:40 | NUR ---
RTND FROM CT. REPORTS "ABD CRAMPING/PAIN. THIS HAPPENED LAST TIME I GOT MORPHINE." NOTIFIED
--- NOTE | 2020-01-13 16:03 | NUR ---
ABD PAIN "EASING UP" AND CP "A LITTLE BETTER. FEELS LIKE PRESSURE"
[2020-01-13 17:01] LABS: CKMB 0.1 U/L (0.0-3.6); CREATINE KINASE 48 UL (21-215); TROPONIN-I < 0.017 ng/mL (0.000-0.060)
--- NOTE | 2020-01-13 17:59 | NUR ---
REPORT TO DELMY ARMENDARIZ
[2020-01-14] VITALS: BP 124/85
[2020-01-14 04:00] VITALS: BP 135/92
[2020-01-14 04:31] LABS: BASOPHILS 0.2 % (0-2); EOSINOPHILS 1.6 % (0-7); IMMATURE GRANULOCYTES 0.3 % (0-5); LYMPHOCYTES 33.5 % (15-50); MCHC 33.3 g/dL (31.0-37.0); MEAN PLATELET VOLUME 8.7 fL (7.4-10.4); MONOCYTES 6.8 % (2-11); NEUTROPHILS 57.6 % (40-80); PLATELET COUNT 273 10x3/uL (130-400); WBC 6.3 10x3/uL (4.8-10.8)
[2020-01-14 04:49] LABS: ALBUMIN 3.3 g/dL (3.4-5.0); ALKALINE PHOSPHATASE 134 U/L (30-120); BILIRUBIN - TOTAL 0.22 mg/dL (0.2-1.3); CALC OSMOLALITY 272 mosm/kg (275-300); CALCIUM 8.4 mg/dL (8.5-10.1); CARBON DIOXIDE 27.6 mmol/L (21.0-32.0); CHLORIDE - SERUM 101 mmol/L (98-107); CKMB 0.3 U/L (0.0-3.6); CREATINE KINASE 30 UL (21-215); CREATININE - SERUM 0.7 mg/dL (0.6-1.3); GLUCOSE 87 mg/dL (74-106); MAGNESIUM - SERUM 2.3 mg/dL (1.8-2.4); PRO BNP 94 pg/mL (0-125); PROTEIN - SERUM 6.5 g/dL (6.4-8.2); SODIUM 136 mmol/L (136-145); THYROID STIMULATING HORMONE 2.63 uIU/mL (0.36-3.74); TROPONIN-I < 0.017 ng/mL (0.000-0.060); UREA NITROGEN 17 mg/dL (7-18); eGFR NON AFRICAN AMERICAN > 90 mL/min (90-120)
[2020-01-14 04:58] LABS: ALT (SGPT) 456 U/L (10-68)
--- NOTE | 2020-01-14 07:24 | NUR ---
ASSESSMENT DONE. DENIES NEEDS
[2020-01-14 09:02] LABS: CHOL - HDL RATIO 4.6 ratio (2.3-4.1); LDL-HDL RATIO 2.9 ratio (1.5-3.5)
[2020-01-14 09:05] VITALS: BP 135/97
--- NOTE | 2020-01-14 10:36 | NUR ---
RETURN FROM PLUG WIRER PER BED. DRSG TO RT GROIN C/D/I, PULSE PALP
--- NOTE | 2020-01-14 12:17 | CN ---
PATIENT NAME:HEIDI POZO MEDICAL RECORD: [id number] : 64 LOCATION:[facility] D.2114 ADMIT DATE: 01/13/20 ACCOUNT: [id number] CONSULTING PHYSICIAN: JENNIFER CORTEZ MD REFERRING PHYSICIAN: TERA SAVAGE MD DATE OF CONSULTATION: 01/14/2020 HISTORY OF PRESENT ILLNESS: A 59-year-old female with no known history of coronary artery disease. She has a history of hypertension, was able to stop her antihypertensives after a diet and exercise last year; however, has been plagued with migraines, had the opportunity to exercise as much and blood pressure has been trending up. Had onset of progressive symptoms with chest tightness and pressure, kind of shortness of breath, strong family history of coronary artery disease. Lipids have been elevated in the past as well. We are asked to see her concerning her cardiovascular status. PAST MEDICAL HISTORY: Includes; 1. History of hypertension, previously lifestyle controlled. 2. Migraine headaches. ALLERGIES: MORPHINE. MEDICATIONS: Include Phenergan 25 mg as needed, Zanaflex 4 mg every day, Fioricet one tab every 6 hours p.r.n., Lexapro 10 mg p.o. day, Neurontin 300 at bedtime, Klonopin 0.5 b.i.d., Linzess 290 mcg every day, Zofran as needed. SOCIAL HISTORY: Works here at the [employer], is a nonsmoker, nondrinker. Previously, had excellent exercise program, although not as aggressive recently. Easily takes care of all her ADLs. REVIEW OF SYSTEMS: The patient reports easy bruising but reports no swollen glands. The patient reports no fever, no night sweats, no significant weight gain, no significant weight loss. No significant exercise tolerance. The patient reports no dry eyes, no irritation, no vision change. Patient reports no difficulty hearing and no ear pain. Patient reports no frequent nose bleeds or nose and sinus problems. Patient reports on arm pain on exertion. No shortness of breath while lying down. No history of heart murmur. Patient reports no cough, no wheezing or coughing up blood. Patient reports no abdominal pain, no vomiting. Normal appetite. No diarrhea and not vomiting blood. No nausea and no constipation. Patient reports no incontinence. No difficulty urinating. No hematuria. No increased frequency. Patient reports no muscle aches. No weakness, no arthralgias, no back pain. No swelling of the extremities. Patient reports no abnormal mole, no jaundice, no rashes. Reports no loss of consciousness. No weakness and no numbness. No seizures, dizziness, or headaches. The patient reports no depression, no sleep disturbance, feeling safe in a relationship and no alcohol abuse. Patient reports on fatigue. Reports no runny nose or sinus pressure. No itching, no hives, and no frequent sneezing. PHYSICAL EXAMINATION: GENERAL: Pleasant, no acute distress, appears stated age. VITAL SIGNS: Blood pressure 135/92, pulse 72 and regular. HEENT: Normocephalic, atraumatic. NECK: No bruits noted. HEART: Regular. A II/ systolic ejection murmur. CONSULT REPORT [id number] HEIDI POZO LUNGS: Good air excursion. ABDOMEN: Soft, nontender. EXTREMITIES: Pulses 2+ with no edema. NEUROLOGIC: Grossly intact. DIAGNOSTIC DATA: EKG shows incomplete right bundle with anterior ST-T segment changes. IMPRESSION: Acute coronary syndrome, multiple risk factors. PLAN: For diagnostic angiography, intervention based on the above. TRANSINT:[id number] Voice Confirmation ID: [id number] DOCUMENT ID: [id number] JENNIFER CORTEZ MD at 1217 CC: [id number] DICTATION DATE: 01/14/20833 DIRECTOR OF RADIO SERVICES: 01/14/20 1055 [place] [address]
--- NOTE | 2020-01-14 12:27 | NUR ---
PT GB REMOVED / U/S ABD DONE IN NOVEMBER. DISCUSSED W DR SAVAGE AND U/S GB FOR TODAY IS CANCELLED. PT INFORMED. DAMIAN RDMS
[2020-01-14 12:59] VITALS: BP 151/98
[2020-01-14 14:42] LABS: BILIRUBIN NEGATIVE (NEGATIVE); GLUCOSE NEGATIVE (NEGATIVE); KETONE NEGATIVE (NEGATIVE); NITRITE NEGATIVE (NEGATIVE); SPECIFIC GRAVITY 1.005 (1.005-1.020); UROBILINOGEN NORMAL (NORMAL)
[2020-01-14 14:47] LABS: UDS - AMPHET NEGATIVE QUAL (NEGATIVE); UDS - BARB POSITIVE QUAL (NEGATIVE); UDS - BENZO POSITIVE QUAL (NEGATIVE); UDS - COCAINE NEGATIVE QUAL (NEGATIVE); UDS - OPIATE NEGATIVE QUAL (NEGATIVE); UDS - PCP NEGATIVE QUAL (NEGATIVE); UDS - THC NEGATIVE QUAL (NEGATIVE)
--- NOTE | 2020-01-14 17:07 | NUR ---
WITHOUT CHANGES OR DISTRESS NOTED AT THIS TIME. DENIES NEEDS
[2020-01-14 17:44] VITALS: BP 151/95
--- NOTE | 2020-01-14 19:10 | NUR ---
REPORT RECEIVED. BEDSIDE SHIFT REPORT COMPLETE. PT UP IN BED, NO DISTRESS OBSERVED. C/O HEADACHE THAT SHE STATES IS CHRONIC. PROVIDED PRN MEDICATION. NO FURHTER NEEDS EXPRESSED. DRESSING TO RIGHT GROIN C/D/I, WILL CPOC.
[2020-01-14 22:37] VITALS: BP 125/89
[2020-01-15 00:40] VITALS: BP 137/91
[2020-01-15 05:02] LABS: BASOPHILS 0.2 % (0-2); EOSINOPHILS 3.4 % (0-7); HEMATOCRIT 36.7 % (36.0-48.0); HEMOGLOBIN 12.2 g/dL (12-16); IMMATURE GRANULOCYTES 0.2 % (0-5); LYMPHOCYTES 41.2 % (15-50); MCH 29.7 pg (26.0-34.0); MCHC 33.2 g/dL (31.0-37.0); MCV 89.3 fL (80.0-100.0); MEAN PLATELET VOLUME 8.7 fL (7.4-10.4); MONOCYTES 6.5 % (2-11); NEUTROPHILS 48.5 % (40-80); PLATELET COUNT 283 10x3/uL (130-400); RBC 4.11 10x6/uL (4.00-5.40); WBC 6.2 10x3/uL (4.8-10.8)
[2020-01-15 05:08] LABS: HEPATITIS C ANTIBODY <0.1 S/CO RAT (0.0-0.9)
[2020-01-15 05:31] LABS: ALBUMIN 3.5 g/dL (3.4-5.0); ALKALINE PHOSPHATASE 136 U/L (30-120); BILIRUBIN - TOTAL 0.33 mg/dL (0.2-1.3); CALC OSMOLALITY 274 mosm/kg (275-300); CARBON DIOXIDE 27.1 mmol/L (21.0-32.0); CHLORIDE - SERUM 102 mmol/L (98-107); CREATININE - SERUM 0.8 mg/dL (0.6-1.3); GLUCOSE 98 mg/dL (74-106); MAGNESIUM - SERUM 2.3 mg/dL (1.8-2.4); POTASSIUM - SERUM 3.7 mmol/L (3.5-5.1); PROTEIN - SERUM 6.9 g/dL (6.4-8.2); SODIUM 137 mmol/L (136-145); UREA NITROGEN 14 mg/dL (7-18); eGFR NON AFRICAN AMERICAN 78 mL/min (90-120)
[2020-01-15 05:32] LABS: ALT (SGPT) 271 U/L (10-68)
[2020-01-15 06:31] VITALS: BP 140/92
--- NOTE | 2020-01-15 07:00 | NUR ---
RECEIVED REPORT. ASSUMED CARE OF PATIENT. CALL LIGHT WITHIN REACH. NO DISTRESS. PATIENT IS IN SR ON TELEMETRY, RATE OF 74.
[2020-01-15 08:07] VITALS: BP 137/79
[2020-01-15] MEDS ORDERED: PROTONIX40 MG PO (08:09)
--- NOTE | 2020-01-15 08:31 | MORECARE ---
CASE MANAGEMENT DISCHARGE SUMMARY PATIENT: HEIDI POZO UNIT: [id number] ADM DATE: 01/14/20 AGE: 59 : 64 SEX: F ROOM/BED: D.7824 AUTHOR: BHUPINDER,DOC PHYSICIAN: REFERRING PHYSICIAN: TERA SAVAGE MD DATE OF SERVICE: 01/15/20 Discharge Plan Patient Name: HEIDI POZO Facility: [facility]:[place] : 1960 Planned Disposition: Home Anticipated Discharge Date: Discharge Date: Expected LOS: Initial Reviewer: [email or web address] Initial Review Date: 01/13/2020 Generated: 01/15/20 9:31 am Comments DCP- Discharge Planning Updated by [email or web address]: Anu Ayala on 01/15/20 7:[address] Patient Name: HEIDI POZO Admission Status: ER Accout number: [id number] Admission Date: 01-14-2020 : 1960 Admission Diagnosis: Attending: TERA SAVAGE Current LOS: 1 Anticipated DC Date: Planned Disposition: Home Primary Insurance: BCTNLIFE Discharge Planning Comments: CM spoke with patient about discharge planning needs. She states that she is independent with her care and plans to drive herself home. She has not had any narcotics and said she is safe to drive herself. She lives with her spouse and denies any needs at this time. CM will assist as needed. Plans to discharge home today. Magician Helper: Anu Ayala DCPIA - Discharge Planning Initial Assessment Updated by [email or web address]: Anu Ayala on 01/15/20 8:27 am * Is the patient Alert and Oriented? Yes * How many steps to enter\exit or inside your home? * PCP ROHIT * Pharmacy [facility] [address] * Preadmission Environment Home with Family * ADLs Independent * Equipment None * List name and contact numbers for known caregivers / representatives who currently or will assist patient after discharge: JAMES POZO (SPOUSE) [phone] * Verbal permission to speak to the caregivers and representatives has been obtained from the patient. N/A * Community resources currently utilized None * Additional services required to return to the preadmission environment? No * Can the patient safely return to the preadmission environment? Yes * Has this patient been hospitalized within the prior 30 days at any hospital? No External Providers External Provider: [employer] Next Contact Date: Service Request Date: Service Type: Resolution: Reviewer: Comments: Patient Name: HEIDI POZO Page [phone] at 0831 All edits/amendments must be made on the electronic document DICTATION DATE: 01/15/20830 PRODUCTION SOUND MIXER: ROB 01/15/20830 RPT#: [id number] DC DATE: STATUS: ADM IN [facility] [address] [place] [address] END OF REPORT
--- NOTE | 2020-01-15 10:25 | NUR ---
DISCHARGE INSTRUCTIONS PROVIDED TO PATIENT. PATIENT VERBALIZED UNDERSTANDING OF ALL INSTRUCTIONS PROVIDED. TELEMETRY REMOVED AND RETURNED TO ROAD TEST EXAMINER. 20GAUGE IV REMOVED FROM LEFT WRIST. CATHETER TIP INTACT. NO BLEEDING FROM SITE. 2X2 GAUZE APPLIED AND SECURED WITH BANDAID. TOLERATED IV REMOVAL WELL.
--- NOTE | 2020-01-15 10:34 | NUR ---
PATIENT REFUSED WHEELCHAIR. PATIENT AMBULATED OFF UNIT AT THIS TIME. PATIENT DISCHARGED TO HOME WITH ALL PERSONAL BELONGINGS IN STABLE CONDITION. PATIENT IS 24 HOURS S/P HEART CATH. NO DISTRESS UPON LEAVING UNIT/ ASSISTED TO EXIT DOORS OF ED.
--- NOTE | 2020-01-16 16:10 | MORECARE ---
CASE MANAGEMENT DISCHARGE SUMMARY PATIENT: HEIDI POZO UNIT: [id number] ADM DATE: 01/14/20 AGE: 59 : 64 SEX: F ROOM/BED: D.3554 AUTHOR: BHUPINDERDOC PHYSICIAN: REFERRING PHYSICIAN: TERA SAVAGE MD DATE OF SERVICE: 01/16/20 Discharge Plan Patient Name: HEIDI POZO Facility: [facility]:[place] : 1960 Planned Disposition: Home Anticipated Discharge Date: Discharge Date: 01/15/2020 Expected LOS: 0 Initial Reviewer: [email or web address] Initial Review Date: 01/13/2020 Generated: 01/16/20 5:10 pm Comments DCP- Discharge Planning Updated by [email or web address]: Anu Ayala on 01/15/20 7:[address] Patient Name: HEIDI POZO Admission Status: ER Accout number: [id number] Admission Date: 01-14-2020 : 1960 Admission Diagnosis: Attending: TERA SAVAGE Current LOS: 1 Anticipated DC Date: Planned Disposition: Home Primary Insurance: BCTNLIFE Discharge Planning Comments: CM spoke with patient about discharge planning needs. She states that she is independent with her care and plans to drive herself home. She has not had any narcotics and said she is safe to drive herself. She lives with her spouse and denies any needs at this time. CM will assist as needed. Plans to discharge home today. Supervisor Paint: Anu Ayala DCPIA - Discharge Planning Initial Assessment Updated by [email or web address]: Anu Ayala on 01/15/20 8:27 am * Is the patient Alert and Oriented? Yes * How many steps to enter\exit or inside your home? * PCP ROHIT * Pharmacy [facility] [address] * Preadmission Environment Home with Family * ADLs Independent * Equipment None * List name and contact numbers for known caregivers / representatives who currently or will assist patient after discharge: JAMES POZO (SPOUSE) [phone] * Verbal permission to speak to the caregivers and representatives has been obtained from the patient. N/A * Community resources currently utilized None * Additional services required to return to the preadmission environment? No * Can the patient safely return to the preadmission environment? Yes * Has this patient been hospitalized within the prior 30 days at any hospital? No Last DP export: 01/15/20 7:31 a Patient Name: HEIDI POZO Page [phone] at 1610 All edits/amendments must be made on the electronic document DICTATION DATE: 01/16/20 1610 BONDING EQUIPMENT OPERATOR: ROB 01/16/20 1610 RPT#: [id number] DC DATE:01/15/20 STATUS: DIS IN [facility] [address] [place] [address] END OF REPORT
--- NOTE | 2020-01-17 08:13 | OP ---
PATIENT NAME: HEIDI POZO MEDICAL RECORD: [id number] :64 LOCATION:D.M2 D.2114 ADMISSION DATE:01/14/20 SURGEON: JENNIFER CORTEZ MD DATE OF OPERATION: 01/14/2020 PROCEDURE: Left heart catheterization, selective coronary angiography, a right femoral artery approach. CATHETERS: A 5-Greek sheath, 5/4 left and right Farhana, 5/4 pig. The procedure was well tolerated. The patient returned to the leger. Sheath removed. ExoSeal device placed. FINDINGS: Left ventriculography in 30-degree LOOMIS view; normal wall motion. Normal systolic function. CORONARY ANATOMY: LEFT MAIN: Left main is free of disease. LAD: Free of disease in the diagonal system. CIRCUMFLEX: Free of disease in the marginal system. RIGHT CORONARY ARTERY: Dominant artery, gives rise to PDA, free of disease. IMPRESSION: Left ventricular systolic function. Normal coronary anatomy. TRANSINT:[id number] Voice Confirmation ID: [id number] DOCUMENT ID: [id number] JENNIFER CORTEZ MD at 0813 CC: [id number] DICTATION DATE: 01/14/20 1018 AWNINGS MECHANIC: 01/14/20 1315 DIS IN 01/15/20 [id number] [place] [address]
== END 2020-01-15 10:40 | disposition home or self-care (01) | DRG 287 ==
LOC: D.ER 14:04 → D.M2 17:29 → OBSVTIME 17:29 → D.M2 01-14 14:25
PROVIDERS: Family Medicine; Internal Medicine Interventional Cardiology; ADMIT Internal Medicine Nephrology; ATTEND Internal Medicine Nephrology
PROC: B2151ZZ Fluoroscopy of Left Heart using Low Osmolar Contrast (ICD-10-PCS; 2020-01-14)
PROC: 4A023N7 Measurement of Cardiac Sampling and Pressure, Left Heart, Percutaneous Approach (ICD-10-PCS; 2020-01-14)
PROC: B2111ZZ Fluoroscopy of Multiple Coronary Arteries using Low Osmolar Contrast (ICD-10-PCS; principal; 2020-01-14 09:30)
DX: R07.9 Chest pain, unspecified (principal); I10 Essential (primary) hypertension; F41.8 Other specified anxiety disorders